=== PATIENT | female | born 1990 | race African-American/Black ===

== ENCOUNTER 2016-08-14 22:24 | Emergency (ER) | payer MEDICAID ==
[2016-08-14] MEDS ORDERED: POLYMYXIN B SULFATE/TMP OPH SOLN (10 ML/ER DISP) OU PRN (23:06)
--- NOTE | 2016-08-14 23:12 | ER Document Report ---
ED General - General Chief Complaint: Eye Problem Stated Complaint: POSSIBLE PINK EYE Time Seen by Provider: 08/14/16 22:54 Notes: Patient is a 25-year-old female who presents with complaint of pinkeye. She said she has had cold-like symptoms for the last 2 days. Slight sore throat. A lot of runny nose congestion. Some cough. No fevers. Today she started noticing some redness in her right eye and now has redness in both eyes. She says that she develops matting when her eyes are closed. She is otherwise healthy. She has no other complaints at this time. TRAVEL OUTSIDE OF THE [place] IN LAST 30 DAYS: No - Related Data Allergies/Adverse Reactions: Penicillins Allergy (Mild, Verified 09/01/15 19:53) rash Past Medical History - Social History Smoking Status: Current Every Day Smoker Chew tobacco use (# tins/day): No Frequency of alcohol use: None Drug Abuse: None Family History: Arthritis, CAD, CVA, DM, Hyperlipidemia, Hypertension, Thyroid Disfunction Pulmonary Medical History: Reports: Hx Asthma, Hx Bronchitis Renal/ Medical History: Denies: Hx Peritoneal Dialysis GI Medical History: Reports: Hx Gastroesophageal Reflux Disease Past Surgical History: Reports: Hx Oral Surgery - Immunizations Immunizations up to date: No Hx Diphtheria, Pertussis, Tetanus Vaccination: Yes Review of Systems - Review of Systems Notes: My Normal Review Basic REVIEW OF SYSTEMS: CONSTITUTIONAL : Denies fever, chills, or sweats. Denies recent illness. EENT: Nasal congestion. Eye redness. RESPIRATORY: Cough. GASTROINTESTINAL: Denies abdominal pain. Denies nausea, vomiting, or diarrhea. Denies constipation. Last BM: MUSCULOSKELETAL: Denies neck or back pain or joint pain or swelling. SKIN: Denies rash or skin lesions. NEUROLOGICAL: Denies altered mental status or loss of consciousness. Denies headache. Denies weakness or paralysis or loss of use of either side. Denies problems with gait or speech. Denies sensory or motor loss. ALL OTHER SYSTEMS REVIEWED AND NEGATIVE. Physical Exam - Vital signs Vitals: Temp Pulse Resp BP Pulse Ox 98.2 F 79 16 123/82 98 08/14/16 22:35 08/14/16 22:35 08/14/16 22:35 08/14/16 22:35 08/14/16 22:35 - Notes Notes: General Appearance: Well nourished, alert, cooperative, no acute distress, no obvious discomfort. Well appearing. Vitals: reviewed, See vital signs table. Head: no swelling or tenderness to the head Eyes: PERRL, EOMI, patient has erythema of conjunctivitis of both eyes. She has a little bit of yellowish discharge base of the right eye. Patient is wearing glasses. She does not have contacts in. Findings are consistent with conjunctivitis. Mouth: No decreasd moisture Throat: No tonsillar inflammation, No airway obstruction, No lymphadenopathy Neck: Supple, no neck tenderness Lungs: No wheezing, No rales, No rhonci, No accessory muscle use, good air exchange bilaterally. Heart: Normal rate, Regular rythm, No murmur, no rub Extremities: strength 5/5 in all extremities, good pulses in all extremities, no swelling or tenderness in the extremities, no edema. Skin: warm, dry, appropriate color, no rash Neuro: speech clear, oriented x 3, normal affect, responds appropriately to questions. Course - Vital Signs Vital signs: Temp Pulse Resp BP Pulse Ox 98.2 F 79 16 123/82 98 08/14/16 22:35 08/14/16 22:35 08/14/16 22:35 08/14/16 22:35 08/14/16 22:35 - Transfer of Care Notes: 08/15/16 00:21 Patient has conjunctivitis most likely related to a upper respiratory infection. Patient will be placed on an biotic eyedrops. She was given those here. She is encouraged to return to ER if she has fevers, worsening redness to the eye, increased swelling around the eye, or if she has further concerns. Patient agrees with plan and will be discharged home. Dictation of this chart was performed using voice recognition software; therefore, there may be some unintended grammatical errors. Discharge - Discharge Clinical Impression: Conjunctivitis Qualifiers: Conjunctivitis type: acute Acute conjunctivitis type: unspecified Laterality: bilateral Qualified Code(s): H10.33 - Unspecified acute conjunctivitis, bilateral URI (upper respiratory infection) Qualifiers: URI type: unspecified URI Qualified Code(s): J06.9 - Acute upper respiratory infection, unspecified Condition: Good Disposition: HOME, SELF-CARE Additional Instructions: Please apply the Polytrim eye drops as 1 drop in each eye every 3 hours for 7 days. Please return to the ER immeidately if your eye redness continue to get worse despite using the eye drops. Please return to the ER if you have fevers, diffiuclty breathing, or feel unwell.
[2016-08-15 02:40] VITALS: BP 116/58
== END 2016-08-14 23:55 | disposition home or self-care (01) ==
LOC: ER 22:24
DX: H10.33 Unspecified acute conjunctivitis, bilateral (principal); J06.9 Acute upper respiratory infection, unspecified; F17.200 Nicotine dependence, unspecified, uncomplicated
CPT/HCPCS: 99282; J3490

== ENCOUNTER 2017-06-22 07:32 | Emergency (ER) | payer SELFPAY ==
[2017-06-22 07:44] VITALS: BP 128/79
--- NOTE | 2017-06-22 08:06 | ER Document Report ---
ED General - General Chief Complaint: Rib Pain Stated Complaint: CHEST PAIN Mode of Arrival: Ambulatory Information source: Patient TRAVEL OUTSIDE OF THE [place] IN LAST 30 DAYS: No - HPI Notes: 26-year-old female presents today with complaints of left chest wall pain that started last night, reports worse when she takes a deep breath in. Denies any recent trauma, recent URI or coughing. 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 Pain is 6 out of 10, throbbing achy. His not tried any [id number] medication. States she is able to reproduce the chest pain brought her into the emergency room by palpating her bed. Denies , is on Depo-Provera and . Denies fevers, chills, chest pain,palpitations, shortness of breath, dyspnea, nausea, vomiting, diarrhea, abdominal pain, hematuria,blurred vision, double vision, loss of vision, speech changes, LH, dizziness, syncope, headaches , wheezing, ST, URI, neck pain, weakness, bowel or bladder dysfunction, saddle anesthesia, numbness or tingling in bilateral upper or lower extremities equally , muscle paralysis, weakness in bilateral upper or lower extremities equally or rash. Denies IV drug use. - Related Data Allergies/Adverse Reactions: Penicillins Allergy (Mild, Verified 06/22/17 07:33) rash Past Medical History - General Information source: Patient - Social History Smoking Status: Unknown if Ever Smoked Family History: Arthritis, CAD, CVA, DM, Hyperlipidemia, Hypertension, Thyroid Disfunction Pulmonary Medical History: Reports: Hx Asthma, Hx Bronchitis Renal/ Medical History: Denies: Hx Peritoneal Dialysis GI Medical History: Reports: Hx Gastroesophageal Reflux Disease Past Surgical History: Reports: Hx Oral Surgery - Immunizations Immunizations up to date: No Hx Diphtheria, Pertussis, Tetanus Vaccination: Yes Review of Systems - Review of Systems Notes: REVIEW OF SYSTEMS: CONSTITUTIONAL : Denies fever, chills, or sweats. Denies recent illness. EENT: Denies eye, ear, throat, or mouth pain or symptoms. Denies nasal or sinus congestion or discharge. Denies throat, tongue, or mouth swelling or difficulty swallowing. CARDIOVASCULAR: reports chest wall pain. Denies chest pain. Denies palpitations or racing or irregular heart beat. Denies ankle edema. RESPIRATORY: Denies cough, cold, or chest congestion. Denies shortness of breath, difficulty breathing, or wheezing. GASTROINTESTINAL: Denies abdominal pain or distention. Denies nausea, vomiting , or diarrhea. Denies blood in vomitus, stools, or per rectum. Denies black, tarry stools. Denies constipation. GENITOURINARY: Denies difficulty urinating, painful urination, burning, frequency, blood in urine, or discharge. FEMALE GENITOURINARY: Denies vaginal bleeding, heavy or abnormal periods, irregular periods. Denies vaginal discharge or odor. MUSCULOSKELETAL: Denies back or neck pain or stiffness. Denies joint pain or swelling. SKIN: Denies rash, lesions or sores. HEMATOLOGIC : Denies easy bruising or bleeding. LYMPHATIC: Denies swollen, enlarged glands. NEUROLOGICAL: Denies confusion or altered mental status. Denies passing out or loss of consciousness. Denies dizziness or lightheadedness. Denies headache. Denies weakness or paralysis or loss of use of either side. Denies problems with gait or speech. Denies sensory loss, numbness, or tingling. Denies seizures. PSYCHIATRIC: Denies anxiety or stress. Denies depression, suicidal ideation, or homicidal ideation. ALL OTHER SYSTEMS REVIEWED AND NEGATIVE. PHYSICAL EXAMINATION: GENERAL: Well-appearing, well-nourished and in no acute distress. HEAD: Atraumatic, normocephalic. EYES: Pupils equal round and reactive to light, extraocular movements intact, conjunctiva are normal. ENT: Nares patent, oropharynx clear without exudates. Moist mucous membranes. NECK: Normal range of motion, supple without lymphadenopathy LUNGS: Breath sounds clear to auscultation bilaterally and equal. No wheezes rales or rhonchi. HEART: Regular rate and rhythm without murmurs. Able to reproduce chest pain on palpation of left rib between 6 and seventh intercostal space on palpation. No ecchymosis, abrasion noted. No step-off noted. ABDOMEN: Soft, nontender, nondistended abdomen. No guarding, no rebound. No masses appreciated. Female : deferred Musculoskeletal: Normal range of motion, no pitting or edema. No cyanosis. NEUROLOGICAL: Cranial nerves grossly intact. Normal speech, normal gait. Normal sensory, motor exams PSYCH: Normal mood, normal affect. SKIN: Warm, Dry, normal turgor, no rashes or lesions noted. Dictation was performed using [employer] voice recognition software Physical Exam - Vital signs Vitals: Temp Pulse Resp BP Pulse Ox 98.3 F 89 18 128/79 H 99 06/22/17 07:38 06/22/17 07:38 06/22/17 07:38 06/22/17 07:38 06/22/17 07:38 Course - Re-evaluation Re-evalutation: 06/22/17 09:35 Healthy 18-year-old female is afebrile and vitals are stable presents today for left-sided chest wall pain. X-ray negative for any acute fracture. Chest x- ray normal. EKG normal, no STEMI. Patient did find relief with Toradol and reevaluation. Discussed with patient to splint while coughing or taking deep breaths. Verbalized to patient that she will have this pain likely for a week or 2. Advised to return to the emergency room if she has experiencing any worsening chest pain, chest pain, shortness of breath, fevers or chills, etc. Patient verbalized understanding of this plan of care and agree with plan of care. Patient was discharged home with strict instructions to return if symptoms get worse. After performing a Medical Screening Examination, I estimate there is LOW risk for ACUTE CORONARY SYNDROME, PULMONARY EMBOLI, RESPIRATORY FAILURE, SEPSIS OR MENINGITIS, thus I consider the discharge disposition reasonable. I have reevaluated this patient multiple times and no significant life threatening changes are noted. The patient and I have discussed the diagnosis and risks, and we agree with discharging home with close follow-up. We also discussed returning to the Emergency Department immediately if new or worsening symptoms occur. We have discussed the symptoms which are most concerning (e.g., changing or worsening pain, trouble swallowing or breathing, neck stiffness, fever) that necessitate immediate return. 06/22/17 12:19 - Vital Signs Vital signs: Temp Pulse Resp BP Pulse Ox 98.3 F 89 18 128/79 H 99 06/22/17 07:38 06/22/17 07:38 06/22/17 07:38 06/22/17 07:38 06/22/17 07:38 - EKG Interpretation by Me EKG shows normal: Sinus rhythm Rate: Normal Rhythm: NSR - HR [address] segment elevation. No STEMI. Discharge - Discharge Clinical Impression: Costochondritis, acute Condition: Good Disposition: HOME, SELF-CARE Instructions: Costochondritis ([facility]) Additional Instructions: Costochondritis Your chest pain is coming from the rib cartilages in the chest wall. This is often caused by subtle straining of the ribs near the breastbone. The strain can occur from a mild injury, coughing or sneezing with a "cold," vigorous vomiting, or even from rib compression while sleeping. Often the pain doesn't begin until a couple of days after the strain. Persons with arthritis are especially prone to this type of pain, due to inflammation of the cartilage joints near the breast bone. But often, there is no clear reason why it happens. Rest from strenuous physical activity. This kind of chest pain is usually made worse by movement of the chest. Depending on the symptoms, we may prescribe medicine for pain and inflammation. Apply gentle warmth to the painful area for 15 minutes every hour or two. You should call contact the doctor immediately if things change. Further evaluation is needed if you develop a fever or cough, if the nature of the pain changes, or if you become short of breath. If you experience any worsening pain, any heart pain, shortness of breath, palpitations, fever chills, any worsening symptoms return to the emergency room right away. Take meloxicam with food, do not take any other NSAIDs while taking this medication. Splint chest while coughing or sneezing. Your rib X- ray was negative for any acute fractures. Follow-up with your primary care provider within 24 hours. Return immediately for any new or worsening symptoms. Follow up with primary care provider, call tomorrow to make followup appointment. Prescriptions: Meloxicam 7.5 mg PO DAILY #5 tablet Forms: Return to Work Referrals: PAN GRAY MD [ACTIVE STAFF] - Follow up tomorrow
[2017-06-22] MEDS ORDERED: KETOROLAC TROMETHAMINE 60 MG/2 ML SDV IM ONE (08:59)
--- NOTE | 2017-06-22 09:24 | RADIOLOGY REPORT (SQ) ---
EXAM DESCRIPTION: RIBS LEFT W/PA CHEST COMPLETED DATE/TIME: 06/22/2017 8:50 am REASON FOR STUDY: left rib pain COMPARISON: Two-view chest 06/23/2015, 11/09/2014 TECHNIQUE: Frontal view of the chest and additional views of the left ribs acquired. NUMBER OF VIEWS: PA chest Left rib detail two views LIMITATIONS: None. FINDINGS: FRONTAL CXR: No pneumothorax. No pleural effusion. No atelectasis or infiltrates. Cardi ac silhouette size, duane, bony structures unremarkable. RIBS: No displaced rib fractures. No lytic or blastic bony lesions. OTHER: No other significant finding. IMPRESSION: NO PNEUMOTHORAX. NO DISPLACED RIB FRACTURES. COMMENT: SITE OF TRAUMA/COMPLAINT MARKED/STAMP COMPLETED: Yes TECHNICAL DOCUMENTATION: JOB ID: [id number] [employer]- All Rights Reserved Reading location - IP/workstation name: [email or web address]
--- NOTE | 2017-06-22 09:38 | EKG REPORT ---
SEVERITY:- NORMAL ECG - SINUS RHYTHM : Confirmed by: Ree Holly 22-Jun-2017 09:38:30
== END 2017-06-22 09:53 | disposition home or self-care (01) ==
LOC: ER 07:32
DX: M94.0 Chondrocostal junction syndrome [Tietze] (principal); R07.81 Pleurodynia; Z88.0 Allergy status to penicillin
CPT/HCPCS: 99283; 96372; 71101; 93005; 93010; J1885

== ENCOUNTER 2017-10-17 20:52 | Emergency (ER) | payer SELFPAY ==
[2017-10-17 21:03] VITALS: BP 111/63
[2017-10-17] MEDS ORDERED: DEXAMETHASONE SOD PHOS INJ 10 MG/1 ML VIAL IM ONE (21:29)
[2017-10-17] MEDS ORDERED: KETOROLAC TROMETHAMINE INJ/PF 30 MG/1 ML SDV IM ONE (21:30)
[2017-10-17] MEDS ORDERED: DIAZEPAM 5 MG TABLET PO ONE (21:30)
--- NOTE | 2017-10-17 21:39 | ER Document Report ---
ED General - General Chief Complaint: Low Back Pain Stated Complaint: BACK PAIN Time Seen by Provider: 10/17/17 21:22 TRAVEL OUTSIDE OF THE [place] IN LAST 30 DAYS: No - HPI Notes: 26-year-old female presents with low back pain. 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 On Tuesday she began to have back pain but improved on Tuesday. However at work she bent over to grab something had sudden increasingly severe right lower back pain that radiated down toward her right hip. Sharp and severe and burning. No bowel or bladder dysfunction. No other modifying factors, no other associated symptoms, no other provocative or palliative factors. - Related Data Allergies/Adverse Reactions: Penicillins Allergy (Mild, Verified 06/22/17 07:33) rash Past Medical History - Social History Smoking Status: Smoker,Current Status Unk Family History: Arthritis, CAD, CVA, DM, Hyperlipidemia, Hypertension, Thyroid Disfunction - Medical History Notes: Includes chronic back pain Pulmonary Medical History: Reports: Hx Asthma, Hx Bronchitis Renal/ Medical History: Denies: Hx Peritoneal Dialysis GI Medical History: Reports: Hx Gastroesophageal Reflux Disease Past Surgical History: Reports: Hx Oral Surgery - Immunizations Immunizations up to date: No Hx Diphtheria, Pertussis, Tetanus Vaccination: Yes Review of Systems - Review of Systems Notes: Review of systems as in history of present illness, otherwise no significant headache, chest pain, abdominal pain. Physical Exam - Vital signs Vitals: Temp Pulse Resp BP Pulse Ox 97.9 F 70 14 111/63 100 10/17/17 20:59 10/17/17 20:59 10/17/17 20:59 10/17/17 20:59 10/17/17 20:59 - Notes Notes: General: Well devloped, no acute distress. HEENT: Normocephalic, atraumatic. Pupils equal round reactive to light. Mucosa moist. No JVD. Chest: No trauma, normal excursion. Respiratory: Good air exchange, normal excursion. Cardiac: Regular rhythm Abdomen: Soft, benign. Nondistended. Back: No asymmetry or gross abnormality. Right paralumbar tenderness and spasm. Motor: Grossly normal power and tone. Right hip flexion limited secondary secondary to pain. Neurologic: Alert, nonfocal. 2+ DTRs, normal sensation. Vascular: Well perfused Skin: No petechiae or purpura Course - Re-evaluation Re-evalutation: 10/17/17 21:37 Appearing female lumbar strain versus lumbar radiculopathy. No high-risk features. There is no history of malignancy, no history of bowel or bladder dysfunction. No fever or constitutional symptoms. No history of IV drug abuse. Plan to proceed with treatment with Decadron, Toradol, Valium, outpatient naproxen and Flexeril, outpatient follow-up. - Vital Signs Vital signs: Temp Pulse Resp BP Pulse Ox 97.9 F 70 14 111/63 100 10/17/17 20:59 10/17/17 20:59 10/17/17 20:59 10/17/17 20:59 10/17/17 20:59 Discharge - Discharge Clinical Impression: Back pain Qualifiers: Back pain location: low back pain Chronicity: acute Back pain laterality: right Sciatica presence: with sciatica Sciatica laterality: sciatica of right side Qualified Code(s): M54.41 - Lumbago with sciatica, right side Condition: Good Disposition: HOME, SELF-CARE Instructions: Low Back Pain ([facility]) Prescriptions: Cyclobenzaprine HCl [Flexeril 10 mg Tablet] 10 mg PO TIDP PRN #15 tab PRN Reason: Naproxen 500 mg PO Q12 PRN #12 tablet PRN Reason:
== END 2017-10-17 21:55 | disposition home or self-care (01) ==
LOC: ER 20:52
DX: M54.41 Lumbago with sciatica, right side (principal); J45.909 Unspecified asthma, uncomplicated; Z88.0 Allergy status to penicillin
CPT/HCPCS: 99283; 96372; J1885; J1100

== ENCOUNTER 2018-10-04 00:39 | Emergency (ER) | payer MEDICAID ==
[2018-10-04 01:51] LABS: ABSOLUTE BASOPHILS # (AUTO) 0.1 10^3/uL (0.0-0.2); ABSOLUTE EOSINOPHILS # (AUTO) 0.1 10^3/uL (0.0-0.6); ABSOLUTE LYMPHOCYTES (AUTO) 3.1 10^3/uL (0.5-4.7); ABSOLUTE MONOCYTES (AUTO) 0.8 10^3/uL (0.1-1.4); ABSOLUTE NEUT (AUTO) 5.9 10^3/uL (1.7-8.2); BASOPHILS % (AUTO) 1.2 % (0-2); EOSINOPHILS % (AUTO) 0.6 % (0-6); HEMATOCRIT 37.4 % (36.0-47.0); HEMOGLOBIN 12.5 g/dL (12.0-15.5); LYMPHOCYTES % (AUTO) 31.2 % (13-45); MEAN CORPUSCULAR HGB CONC 33.5 g/dL (32.0-36.0); MEAN CORPUSCULAR VOLUME 84 fl (80-97); MONOCYTES % (AUTO) 7.8 % (3-13); PLATELET COUNT 461 10^3/uL (150-450); RED BLOOD COUNT 4.48 10^6/uL (3.72-5.28); RED CELL DISTRIBUTION WIDTH 12.7 % (11.5-14.0); SEGMENTED NEUTROPHILS % (AUTO) 59.2 % (42-78); TOTAL CELLS COUNTED % (AUTO) 100 %
[2018-10-04 01:52] LABS: APPEARANCE,URINE SLIGHTLY-CLOUDY; BILIRUBIN,URINE NEGATIVE (NEGATIVE); COLOR,URINE YELLOW; GLUCOSE, URINE NEGATIVE (NEGATIVE); KETONES,URINE TRACE mg/dL (NEGATIVE); LEUKOCYTE ESTERASE,URINE MODERATE (NEGATIVE); NITRITE,URINE NEGATIVE (NEGATIVE); PROTEIN,URINE NEGATIVE (NEGATIVE); URINE SPECIFIC GRAVITY 1.013; UROBILINOGEN,URINE NEGATIVE mg/dL (<2.0)
[2018-10-04 01:57] LABS: ADD MANUAL MICROSCOPIC YES
[2018-10-04 01:58] LABS: RBC,URINE RARE /HPF
[2018-10-04 02:04] LABS: BLOOD UREA NITROGEN 8 mg/dL (7-20); CALCIUM 9.6 mg/dL (8.4-10.2); GLUCOSE 88 mg/dL (75-110)
[2018-10-04 02:05] LABS: ALANINE AMINOTRANSFERASE 36 U/L (9-52); ALBUMIN 4.1 g/dL (3.5-5.0); ALKALINE PHOSPHATASE 66 U/L (38-126); ANION GAP 11 (5-19); ASPARTATE AMINO TRANSFERASE 34 U/L (14-36); BILIRUBIN,DIRECT 0.2 mg/dL (0.0-0.4); BILIRUBIN,TOTAL 0.2 mg/dL (0.2-1.3); CARBON DIOXIDE 20 mmol/L (22-30); CHLORIDE 105 mmol/L (98-107); POTASSIUM 4.3 mmol/L (3.6-5.0); SODIUM 136.4 mmol/L (137-145); TOTAL PROTEIN 7.6 g/dL (6.3-8.2)
--- NOTE | 2018-10-04 02:37 | ER Document Report ---
ED General - General Chief Complaint: Fever Stated Complaint: FEVER Time Seen by Provider: 10/04/18 02:05 TRAVEL OUTSIDE OF THE [place] IN LAST 30 DAYS: No - HPI Notes: Patient is a 27-year-old female, at approximately 6 weeks gestation, who presents to the emergency department for evaluation. She has had a cough, cold, congestion symptoms for the last several weeks. She is had intermittent nausea and vomiting. She has only had one episode of emesis in the last 24 hours. She states that her cough seems to be getting better, but she continues to complain of malaise, fatigue. She denies any hematuria, dysuria. She denies any abdominal pain or vaginal bleeding. She has not yet seen OB. She states she has had some low-grade fevers, but denies any temperatures higher than 100.4. She denies any pain. - Related Data Allergies/Adverse Reactions: Penicillins Allergy (Mild, Verified 06/22/17 07:33) rash Past Medical History - General Information source: Patient - Social History Smoking Status: Current Every Day Smoker Frequency of alcohol use: None Drug Abuse: None Family History: Arthritis, CAD, CVA, DM, Hyperlipidemia, Hypertension, Thyroid Disfunction Patient has suicidal ideation: No Patient has homicidal ideation: No Pulmonary Medical History: Reports: Hx Asthma, Hx Bronchitis Renal/ Medical History: Denies: Hx Peritoneal Dialysis GI Medical History: Reports: Hx Gastroesophageal Reflux Disease Past Surgical History: Reports: Hx Oral Surgery - Immunizations Immunizations up to date: No Hx Diphtheria, Pertussis, Tetanus Vaccination: Yes Review of Systems - Review of Systems Constitutional: See HPI EENT: See HPI Cardiovascular: No symptoms reported Respiratory: See HPI Gastrointestinal: See HPI Genitourinary: No symptoms reported Female Genitourinary: See HPI Musculoskeletal: No symptoms reported Skin: No symptoms reported Neurological/Psychological: No symptoms reported Physical Exam - Vital signs Vitals: Temp Pulse Resp BP Pulse Ox 97.8 F 68 16 124/67 97 10/04/18 00:44 10/04/18 00:44 10/04/18 00:44 10/04/18 00:44 10/04/18 00:44 - Notes Notes: Vital signs reviewed, please refer to chart. Head is normocephalic, atraumatic. Pupils equal round, reactive to light. Oral mucosa is moist. Pharynx is without erythema or exudate. Neck is supple without meningismus. Heart is regular rate and rhythm. Lungs are clear to auscultation bilaterally. Abdomen is soft, nontender, normoactive bowel sounds throughout. Extremities without cyanosis, clubbing. Posterior calves are nontender. Peripheral pulses are equal. Skin is warm and dry. Patient is awake, alert, neurological exam is nonfocal. Course - Re-evaluation Re-evalutation: 10/04/18 02:36 Patient presents emergency department for evaluation. She complains of cough a nd congestion, which is actually improved, as well as malaise. She is not early . She has no abdominal pain or vaginal bleeding. Laboratory investigations are pending. Will await electrolytes to see if patient needs IV hydration. At this point she is 97 to 99% on room air. Her lung exam is unremarkable. Her cough and URI symptoms are improving. I do not have any concerns for pneumonia, which was the patient's primary concern. We discussed the fact that there are not very many medications that are considered safe in the first trimester , and she voiced understanding to this. Assuming her electrolytes are not abnormal, she is to continue Tylenol as needed, follow-up with her OB this week. She is to return to the ED with worsening or new concerning symptoms of any sort. 10/04/18 03:52 Patient's metabolic panel did indeed reveal signs of dehydration. I spoke with the patient regarding this. We did offer her IV fluids. She states she would like to try oral hydration. She was told to take small, frequent sips of fluids. She is to follow-up with OB, return to the ED with worsening or new concerning symptoms. - Vital Signs Vital signs: Temp Pulse Resp BP Pulse Ox 97.8 F 68 16 124/67 97 10/04/18 00:44 10/04/18 00:44 10/04/18 00:44 10/04/18 00:44 10/04/18 00:44 - Laboratory Result Diagrams: 10/04/18 01:25 10/04/18 01:25 Laboratory results interpreted by me: 10/04/18 10/04/18 10/04/18 01:25 01:25 01:25 Plt Count 461 H Sodium 136.4 L Carbon Dioxide 20 L Beta HCG, Quant 56072.00 H Urine Ketones TRACE H Ur Leukocyte Esterase MODERATE H Urine HCG, Qual 10/04/18 01:25 Plt Count Sodium Carbon Dioxide Beta HCG, Quant Urine Ketones Ur Leukocyte Esterase Urine HCG, Qual POSITIVE H Discharge - Discharge Clinical Impression: Dehydration, Nausea and vomiting during Qualifiers: Weeks of gestation: less than 8 weeks Qualified Code(s): Z3A.01 - Less than 8 weeks gestation of Upper respiratory infection Qualifiers: URI type: unspecified viral URI Qualified Code(s): J06.9 - Acute upper respira tory infection, unspecified Condition: Stable Disposition: HOME, SELF-CARE Instructions: Acetaminophen, Upper Respiratory Illness ([facility]), Nausea or Vomiting, Nonspecific ([facility]) Additional Instructions: Small, frequent sips of fluids. Follow-up with your OB this week. Return to the emergency department if you develop worsening or new concerning symptoms of any sort.
[2018-10-04 04:06] VITALS: BP 122/74
== END 2018-10-04 04:06 | disposition home or self-care (01) ==
LOC: ER 00:39
DX: O98.811 Other maternal infectious and parasitic diseases complicating pregnancy, first trimester (principal); J06.9 Acute upper respiratory infection, unspecified; R50.9 Fever, unspecified; E86.0 Dehydration; O21.9 Vomiting of pregnancy, unspecified; Z3A.01 Less than 8 weeks gestation of pregnancy; Z88.0 Allergy status to penicillin
CPT/HCPCS: 36415; 80053; 81001; 81025; 84702; 85025; 87086; 99283

== ENCOUNTER → 2018-10-04 | Outpatient (CLI) | payer SELFPAY ==
--- NOTE | 2018-10-04 16:15 | RADIOLOGY REPORT (SQ) ---
EXAM DESCRIPTION: U/S TP2HWFG TRNABD 1GES W/ODOP COMPLETED DATE/TIME: 10/04/2018 2:28 pm REASON FOR STUDY: ENCTR FOR SUPERVISION OF OTHER NORMAL , 1ST TRIMESTER (Z34.81) Z34.81 EN COUNTER FOR SUPRVSN OF NORMAL , FIRST TRIM COMPARISON: None. TECHNIQUE: Transabdominal static and realtime grayscale images acquired of the pelvis. Additional se lected spectral and color Doppler images recorded. All images stored on PACs. CG: Not available. CLINICAL DATES: 7 weeks 2 days LIMITATIONS: None. FINDINGS: FETUS: Single Living intrauterine . ULTRASOUND EGA: 6 weeks 6 days ULTRASOUND LAUREEN: 05/24/2019 EFW: Not applicable less than 20 weeks. CRL: 9 mm FHR: 141 beats per minute. SURVEY: No visualized anomalies. AMNIOTIC FLUID: Adequate amount. PLACENTA: Not yet developed due to early gestation. SUBCHORIONIC BLEED: No. SIZE OF BLEED: Not applicable. UTERUS: No masses. No anomalies. CERVICAL LENGTH: 3.2 cm. Closed. RIGHT ADNEXA: Normal ovary with normal vascular flow. No adnexal free fluid. No adnexal masses. LEFT ADNEXA: Normal ovary with normal vascular flow. No adnexal free fluid. Simple cyst(s) measuring 4.6 cm. FREE FLUID: None. OTHER: No other significant finding. IMPRESSION: LIVING INTRAUTERINE . EGA 6 weeks 6 days Trimester of : First - 0 to 13 weeks. TECHNICAL DOCUMENTATION: JOB ID: [id number] [employer]- All Rights Reserved rev Reading location - IP/workstation name: [email or web address]
== END ==
LOC: RAD 13:30
PROVIDERS: ATTEND Midwife
DX: Z34.81 Encounter for supervision of other normal pregnancy, first trimester (principal)
CPT/HCPCS: 76801

== ENCOUNTER 2018-12-14 08:33 | Emergency (ER) | payer MEDICAID ==
--- NOTE | 2018-12-14 09:22 | ER Document Report ---
ED General - General Chief Complaint: Abdominal Pain Stated Complaint: ABDOMINAL PAIN Time Seen by Provider: 12/14/18 09:22 Primary Care Provider: DIANA DEAN MD [ACTIVE STAFF] - Follow up as needed MARKELL DORAN MD [ACTIVE STAFF] - Follow up as needed TRAVEL OUTSIDE OF THE [place] IN LAST 30 DAYS: No - HPI Notes: 28-year-old female who is 17 weeks presents to the ED for complaints of having upper and lower abdominal cramping that started approximately 3 days ago, states is a dull pain. 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 Denies any vaginal bleeding or vaginal discharge. Has not tried any lrja-twa-vyzssvg medications, does have a history of GERD, does take ranitidine daily. Patient's last bowel movement was last night. Denies any melena, coffee-ground emesis. Denies fevers, chills, chest pain,palpitations, shortness of breath, dyspnea, diarrhea, hematuria,blurred vision, double vision, loss of vision, speech changes, LH, dizziness, syncope, headaches, wheezing, ST, URI, neck pain, weakness, bowel or bladder dysfunction, saddle anesthesia, numbness or tingling in bilateral upper or lower extremities equally, muscle paralysis, weakness in bilateral upper or lower extremities equally or rash. - Related Data Allergies/Adverse Reactions: Penicillins Allergy (Mild, Verified 06/22/17 07:33) rash Past Medical History - General Information source: Patient - Social History Smoking Status: Former Smoker Chew tobacco use (# tins/day): No Frequency of alcohol use: None Drug Abuse: None Family History: Arthritis, CAD, CVA, DM, Hyperlipidemia, Hypertension, Thyroid Disfunction Patient has suicidal ideation: No Patient has homicidal ideation: No Pulmonary Medical History: Reports: Hx Asthma, Hx Bronchitis Renal/ Medical History: Denies: Hx Peritoneal Dialysis GI Medical History: Reports: Hx Gastroesophageal Reflux Disease Past Surgical History: Reports: Hx Oral Surgery - Immunizations Immunizations up to date: No Hx Diphtheria, Pertussis, Tetanus Vaccination: Yes Review of Systems - Review of Systems Constitutional: No symptoms reported EENT: No symptoms reported Cardiovascular: No symptoms reported Respiratory: No symptoms reported Gastrointestinal: See HPI Genitourinary: No symptoms reported Female Genitourinary: No symptoms reported Musculoskeletal: No symptoms reported Skin: No symptoms reported Hematologic/Lymphatic: No symptoms reported Neurological/Psychological: No symptoms reported Physical Exam - Vital signs Vitals: Temp Pulse Resp BP Pulse Ox 98.4 F 76 16 124/70 97 12/14/18 08:36 12/14/18 08:36 12/14/18 08:36 12/14/18 08:36 12/14/18 08:36 - Notes Notes: PHYSICAL EXAMINATION: GENERAL: Well-appearing, well-nourished and in no acute distress. HEAD: Atraumatic, normocephalic. EYES: Pupils equal round and reactive to light, extraocular movements intact, conjunctiva are normal. ENT: Nares patent, oropharynx clear without exudates. Moist mucous membranes. NECK: Normal range of motion, supple without lymphadenopathy LUNGS: Breath sounds clear to auscultation bilaterally and equal. No wheezes rales or rhonchi. HEART: Regular rate and rhythm without murmurs ABDOMEN: Bowel sounds heard in all quadrants. soft, nondistended abdomen. Generalized abdominal pain no guarding, no rebound. No masses appreciated. Female : deferred Musculoskeletal: Normal range of motion, no pitting or edema. No cyanosis. NEUROLOGICAL: Cranial nerves grossly intact. Normal speech, normal gait. Normal sensory, motor exams PSYCH: Normal mood, normal affect. SKIN: Warm, Dry, normal turgor, no rashes or lesions noted. - General General appearance: Appears well, Alert Course - Re-evaluation Re-evalutation: 12/14/18 10:19 Afebrile vital stable no distress. CBC negative for leukocytosis or anemia, CMP negative for hepatic or renal dysfunction, no electrolyte disturbances. Lipase was negative. Ultrasound of abdomen was unremarkable, SYSTEM ENGINEER ultrasound shows intrauterine approximately 18 weeks and 2 days, heart rate 140. Patient states she felt much better after a liter of fluids, her nausea and vomiting has abated. Serum hCG seems to be exceptionally low, did a repeat of serum hCG which seems all for being 18 weeks along, unsure if it serum hCG chemistry was correct being that she was 18 weeks . Discussed follow a low-fat diet, stay hydrated. She does not have any vaginal discharge, no vaginal pain. advised to take vitamin B6 for nausea and vomiting. 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 After performing a Medical Screening Examination, I estimate there is LOW risk for ACUTE APPENDICITIS, BOWEL OBSTRUCTION, ACUTE CHOLECYSTITIS, PERFORATED DIVERTICULITIS, INCARCERATED HERNIA, PANCREATITIS, PELVIC INFLAMMATORY DISEASE, PERFORATED ULCER, ECTOPIC , or TUBO-OVARIAN ABSCESS, thus I consider th e discharge disposition reasonable. Also, there is no evidence or peritonitis, sepsis, or toxicity. I have reevaluated this patient multiple times and no significant life threatening changes are noted. The patient and I have discussed the diagnosis and risks, and we agree with discharging home with close follow-up with the understanding that symptoms and presentations can change. We also discussed returning to the Emergency Department immediately if new or worsening symptoms occur. We have discussed the symptoms which are most concerning (e.g., bloody stool, fever, changing or worsening pain, vomiting) that necessitate immediate return. - Vital Signs Vital signs: Temp Pulse Resp BP Pulse Ox 97.6 F 76 18 110/65 100 12/14/18 13:13 12/14/18 13:13 12/14/18 13:13 12/14/18 13:13 12/14/18 13:13 - Laboratory Result Diagrams: 12/14/18 09:48 12/14/18 09:48 Laboratory results interpreted by me: 12/14/18 12/14/18 12/14/18 09:48 09:48 09:48 Hgb 11.3 L Hct 32.9 L Sodium 136.2 L Carbon Dioxide 21 L BUN 5 L Creatinine 0.46 L Glucose 119 H Beta HCG, Quant 3049.00 H Urine Protein 30 H Urine Urobilinogen 2.0 H Ur Leukocyte Esterase TRACE H 12/14/18 12:38 Hgb Hct Sodium Carbon Dioxide BUN Creatinine Glucose Beta HCG, Quant 2922.60 H Urine Protein Urine Urobilinogen Ur Leukocyte Esterase Discharge - Discharge Clinical Impression: Abdominal pain, Condition: Stable Disposition: HOME, SELF-CARE Instructions: Abdominal Pain ([facility]), ([facility]) Additional Instructions: You are . care is best started as early in as possible. If you're unsure about continuing this , you should discuss this with your physician or with carton and can supply supervisor at [facility]. You should take only medications approved by your physician. Acetaminophen can safely be taken for minor pains. As a rule, medication for chronic conditio ns such as asthma or seizures can safely be continued. You should discuss with the physician every medicine you take. Any regular exercise program can be continued. Talk to your physician, however, before engaging in competitive or demanding sports. Alcohol, smoking, and "street drugs" are dangerous to your baby. Cocaine is especially dangerous. Don't use any illicit drugs! Your OB ultrasound shows that you are 18 weeks and 2 days, heartbeat 141. Abdominal ultrasound was normal. All of your blood work was normal except it did show the beginnings of a UTI, will start you on Macrobid twice a day for 5 days and will culture the urine. Please follow-up with your doctor and your GLUE REEL OPERATOR. Prescriptions: Nitrofurantoin Macrocrystal [Macrodantin] 100 mg PO BID #14 capsule Forms: Return to Work Referrals: DIANA DEAN MD [ACTIVE STAFF] - Follow up as needed MARKELL DORAN MD [ACTIVE STAFF] - Follow up as needed
[2018-12-14] MEDS ORDERED: NORMAL SALINE 1000 ML 1,000 ML IV ONE (09:23)
[2018-12-14 10:10] LABS: APPEARANCE,URINE SLIGHTLY-CLOUDY; BILIRUBIN,URINE NEGATIVE (NEGATIVE); COLOR,URINE YELLOW; GLUCOSE, URINE NEGATIVE (NEGATIVE); KETONES,URINE NEGATIVE (NEGATIVE); LEUKOCYTE ESTERASE,URINE TRACE (NEGATIVE); NITRITE,URINE NEGATIVE (NEGATIVE); PROTEIN,URINE 30 mg/dL (NEGATIVE); URINE SPECIFIC GRAVITY 1.027
[2018-12-14 10:16] LABS: ABSOLUTE EOSINOPHILS # (AUTO) 0.1 10^3/uL (0.0-0.6); ABSOLUTE LYMPHOCYTES (AUTO) 1.9 10^3/uL (0.5-4.7); ABSOLUTE MONOCYTES (AUTO) 0.7 10^3/uL (0.1-1.4); BASOPHILS % (AUTO) 0.3 % (0-2); EOSINOPHILS % (AUTO) 0.9 % (0-6); HEMATOCRIT 32.9 % (36.0-47.0); HEMOGLOBIN 11.3 g/dL (12.0-15.5); LYMPHOCYTES % (AUTO) 21.4 % (13-45); MEAN CORPUSCULAR HEMOGLOBIN 28.6 pg (27.0-33.4); MEAN CORPUSCULAR HGB CONC 34.3 g/dL (32.0-36.0); MEAN CORPUSCULAR VOLUME 83 fl (80-97); MONOCYTES % (AUTO) 8.5 % (3-13); PLATELET COUNT 381 10^3/uL (150-450); RED BLOOD COUNT 3.95 10^6/uL (3.72-5.28); SEGMENTED NEUTROPHILS % (AUTO) 68.9 % (42-78); TOTAL CELLS COUNTED % (AUTO) 100 %; WHITE BLOOD COUNT 8.8 10^3/uL (4.0-10.5)
[2018-12-14 10:32] LABS: ALBUMIN 3.6 g/dL (3.5-5.0); ALKALINE PHOSPHATASE 62 U/L (38-126); ANION GAP 8 (5-19); ASPARTATE AMINO TRANSFERASE 27 U/L (14-36); BILIRUBIN,DIRECT 0.1 mg/dL (0.0-0.4); BILIRUBIN,TOTAL 0.3 mg/dL (0.2-1.3); BLOOD UREA NITROGEN 5 mg/dL (7-20); CALCIUM 9.4 mg/dL (8.4-10.2); CARBON DIOXIDE 21 mmol/L (22-30); CHLORIDE 107 mmol/L (98-107); GLUCOSE 119 mg/dL (75-110); TOTAL PROTEIN 6.8 g/dL (6.3-8.2)
--- NOTE | 2018-12-14 12:50 | RADIOLOGY REPORT (SQ) ---
EXAM DESCRIPTION: U/S ABDOMEN LIMITED W/O DOP COMPLETED DATE/TIME: 12/14/2018 12:29 pm REASON FOR STUDY: epigastric cramping, 17 weeks preg COMPARISON: None. TECHNIQUE: Dynamic and static grayscale images acquired of the abdomen and recorded on PACS. Additio do selected color Doppler and spectral images recorded. LIMITATIONS: None. FINDINGS: PANCREAS: No masses. Visualized pancreatic duct normal caliber. LIVER: No masses. Echotexture normal. LIVER VASCULATURE: Normal directional flow of the main portal vein and hepatic veins. GALLBLADDER: No stones. Normal wall thickness. No pericholecystic fluid. ULTRASOUND-DETECTED COOPER'S SIGN: Negative. INTRAHEPATIC DUCTS AND COMMON DUCT: CBD and intrahepatic ducts normal caliber. No filling defects. INFERIOR VENA CAVA: Normal flow. AORTA: No aneurysm. RIGHT KIDNEY: Normal size. Normal echogenicity. No solid or suspicious masses. No hydronephrosis. No calcifications. PERITONEAL AND RIGHT PLEURAL SPACE: No ascites or effusions. OTHER: No other significant findings. IMPRESSION: NORMAL RIGHT UPPER QUADRANT ULTRASOUND. TECHNICAL DOCUMENTATION: JOB ID: [id number]- All Rights Reserved Reading location - IP/workstation name: [email or web address]
--- NOTE | 2018-12-14 12:55 | RADIOLOGY REPORT (SQ) ---
EXAM DESCRIPTION: U/S OB 14+ TA/1 GEST W/DOPPLER COMPLETED DATE/TIME: 12/14/2018 12:36 pm REASON FOR STUDY: lower abd cramping COMPARISON: 10/04/2016 TECHNIQUE: Static and Dynamic grayscale imaging performed of gravid uterus using transabdominal appr oach. Additional selected color Doppler and spectral images recorded. All stored on PACS. LIMITATIONS: Limiting body habitus. FINDINGS: FETUSES SEEN:1 EGA: 18 week 2 day Calculated using BPD,FL,HC,AC documented on images. Relatively close to clinical dating, 17 week 3 day. LAUREEN: 05/15/2019 EFW: 222 grams PERCENTILE: Not calculated. GLENROY: Largest vertical pocket 4.7 cm PLACENTA: Posterior. GRADE: I PRESENTATION: Transverse head maternal left ANATOMY: HEART RATE: 141 beats per minute. FOUR CHAMBER HEART: Not visualized. THREE VESSEL CORD: Yes. CORD INSERTION: Visualized. KIDNEYS AND BLADDER: Kidneys not well demonstrated. Bladder unremarkable. STOMACH: Visualized. Appears normal. SPINE: Limited visualization of the spine. Grossly normal. BRAIN AND LATERAL VENTRICLES: Visualized. Appear normal. OTHER: No other significant finding. MATERNAL ADNEXA: Maternal ovaries not visualized. CERVICAL LENGTH: 4.4 cm. Closed. OTHER: No other significant finding. IMPRESSION: LIVING INTRAUTERINE . ESTIMATED GESTATIONAL AGE 18 week 2 day NO VISUALIZED ANOMALIES. Trimester of : Second trimester - 13 weeks 1 day to 27 weeks 6 days. TECHNICAL DOCUMENTATION: JOB ID: [id number] [employer]- All Rights Reserved Reading location - IP/workstation name: [email or web address]
[2018-12-14 13:15] VITALS: BP 110/65
== END 2018-12-14 13:20 | disposition home or self-care (01) ==
LOC: ER 08:33
DX: O26.892 Other specified pregnancy related conditions, second trimester (principal); R10.84 Generalized abdominal pain; O99.612 Diseases of the digestive system complicating pregnancy, second trimester; K21.9 Gastro-esophageal reflux disease without esophagitis; Z79.899 Other long term (current) drug therapy; O21.9 Vomiting of pregnancy, unspecified; O99.512 Diseases of the respiratory system complicating pregnancy, second trimester; J45.909 Unspecified asthma, uncomplicated; Z3A.17 17 weeks gestation of pregnancy; Z88.0 Allergy status to penicillin; Z87.891 Personal history of nicotine dependence
CPT/HCPCS: 99284; 96360; 96361; 36415; 87086; 84702; 83690; 85025; 80053; 81001; 76805; 76705; 93976; J7030

== ENCOUNTER 2019-04-05 08:22 | Outpatient (CLI) | payer MEDICAID ==
[2019-04-05] MEDS ORDERED: PROMETHAZINE HCL INJ 25 MG/1 ML VIAL ONE (09:24)
[2019-04-05] MEDS ORDERED: PROMETHAZINE HCL INJ 25 MG/1 ML VIAL IV ONE (09:25)
[2019-04-05 09:27] LABS: APPEARANCE,URINE SLIGHTLY-CLOUDY; BILIRUBIN,URINE SMALL (NEGATIVE); COLOR,URINE DARK YELLOW; GLUCOSE, URINE NEGATIVE (NEGATIVE); KETONES,URINE 80 mg/dL (NEGATIVE); LEUKOCYTE ESTERASE,URINE SMALL (NEGATIVE); NITRITE,URINE NEGATIVE (NEGATIVE); PROTEIN,URINE 100 mg/dL (NEGATIVE)
[2019-04-05] MEDS: RINGERS SOLUTION,LACTATED 1,000 ML IV PRN ×2 (09:28→09:57)
[2019-04-05] MEDS ORDERED: DEXTROSE 5%-LACTATED RINGERS 1,000 ML IV PRN (10:48)
--- NOTE | 2019-04-05 10:58 | Non Stress Test Report ---
Non Stress Test Datetime Report Generated by CPN: 04/05/2019 10:58 DEMOGRAPHIC Test Number: 1 EGA NST: 33.3 INDICATION Indication for Study (NST) Other: LC ordered by provider VITAL SIGNS Temperature - NST: 98.9 Pulse - NST: 88 RESP - NST: 16 NBPSYS NST: 103 NBPDIA NST: 58 MONITORING Monitor Explained: Monitor Explained; Test Explained; Patient Verbalized Understanding Time on Monitor: 04/05/2019 08:50 Time off Monitor: 04/05/2019 09:30 NST Duration: 40 NST INTERVENTIONS NST Interventions: PO Hydration; Reposition Patient Physician Notified NST: A Ho CNM BABY A: [id number] BABY A Movement : Present Contraction Frequency : irr FHR Baseline : 140 Accelerations : 15X15 Decelerations : None Variability : Moderate 6-25bpm NST Review: Meets Criteria for Reactive NST NST Review and Verified By : Arabella Wilmer RNC NST Results: Reactive NST REPORT Report Trigger: Send Report
== END 2019-04-05 12:05 | disposition home or self-care (01) ==
LOC: LC 08:22
PROVIDERS: ATTEND Obstetrics & Gynecology
PROC: 4A1HXCZ Monitoring of Products of Conception, Cardiac Rate, External Approach (ICD-10-PCS; principal; 2019-04-05)
DX: O99.283 Endocrine, nutritional and metabolic diseases complicating pregnancy, third trimester (principal); E86.0 Dehydration; K52.9 Noninfective gastroenteritis and colitis, unspecified; O99.333 Smoking (tobacco) complicating pregnancy, third trimester; F17.210 Nicotine dependence, cigarettes, uncomplicated
CPT/HCPCS: 59025; 87086; 81001; J2550

== ENCOUNTER 2019-05-22 12:38 | Inpatient (IN) | payer MEDICAID ==
[2019-05-22] MEDS ORDERED: OXYTOCIN/NORMAL SALINE 20 UNIT/1,000 ML RTUINJ IV PRN ×3 (13:53→22:51)
[2019-05-22 14:17] LABS: ABSOLUTE LYMPHOCYTES (AUTO) 1.5 10^3/uL (0.5-4.7); ABSOLUTE MONOCYTES (AUTO) 0.8 10^3/uL (0.1-1.4); ABSOLUTE NEUT (AUTO) 6.8 10^3/uL (1.7-8.2); BASOPHILS % (AUTO) 0.5 % (0-2); EOSINOPHILS % (AUTO) 0.4 % (0-6); HEMATOCRIT 32.4 % (36.0-47.0); HEMOGLOBIN 11.3 g/dL (12.0-15.5); LYMPHOCYTES % (AUTO) 16.7 % (13-45); MEAN CORPUSCULAR HEMOGLOBIN 28.8 pg (27.0-33.4); MEAN CORPUSCULAR HGB CONC 34.7 g/dL (32.0-36.0); MEAN CORPUSCULAR VOLUME 83 fl (80-97); MONOCYTES % (AUTO) 8.8 % (3-13); PLATELET COUNT 344 10^3/uL (150-450); RED BLOOD COUNT 3.91 10^6/uL (3.72-5.28); RED CELL DISTRIBUTION WIDTH 13.9 % (11.5-14.0); SEGMENTED NEUTROPHILS % (AUTO) 73.6 % (42-78); TOTAL CELLS COUNTED % (AUTO) 100 %; WHITE BLOOD COUNT 9.3 10^3/uL (4.0-10.5)
[2019-05-22 14:18] LABS: APPEARANCE,URINE SLIGHTLY-CLOUDY; BILIRUBIN,URINE NEGATIVE (NEGATIVE); COLOR,URINE YELLOW; GLUCOSE, URINE NEGATIVE (NEGATIVE); KETONES,URINE NEGATIVE (NEGATIVE); LEUKOCYTE ESTERASE,URINE LARGE (NEGATIVE); NITRITE,URINE NEGATIVE (NEGATIVE); PROTEIN,URINE NEGATIVE (NEGATIVE); URINE SPECIFIC GRAVITY 1.008; UROBILINOGEN,URINE NEGATIVE mg/dL (<2.0)
[2019-05-22 14:33] LABS: URINE AMPHETAMINES SCREEN NEGATIVE; URINE BARBITURATES SCREEN NEGATIVE; URINE BENZODIAZEPINES SCREEN NEGATIVE; URINE COCAINE SCREEN NEGATIVE; URINE MARIJUANA (THC) SCREEN NEGATIVE; URINE METHADONE SCREEN NEGATIVE; URINE PHENCYCLIDINE SCREEN NEGATIVE
--- NOTE | 2019-05-22 14:57 | Admission Physical ---
Datetime Report Generated by CPN: 05/22/2019 14:56 CURRENT ADMISSION Chief Complaint: Decreased Movement Indication for Induction: Post Dates Admit Impression : Postterm, Intrauterine ; No Active Labor Admit Plan: Admit to Unit; Initiate Labor Induction Protocol Admit Plan- Other: care at [facility] LAUREEN by LMP confirmed by 6wk 6d U/S at [facility] was disengaged from A in 2016 GBS neg refused GTT testing, had hgbA1c in Max that was 5.6 ALLERGIES Medication Allergies: Yes Medication Allergies: Penicillins/KS/rash (06/22/2017) Latex: No Latex Allergies Food Allergies: NONE Environmental Allergies: NONE OBSTETRICAL HISTORY EDC: 05/21/2019 00:00 : 4 Para: 2 Term: 2 : 0 SAB: 1 IAB: 0 Ectopic: 0 Livin Cesareans: 0 VBACs: 0 Multiple Births: 0 Gestational Diabetes: No Rh Sensitization: No Incompetent Cervix: No CLIF: No Infertility: No ART Treatment: No Uterine Anomaly: No IUGR: No Hx Previous C/S: No Macrosomia: No Hx Loss/Stillborn: No PIH: No Hx : No Placenta Previa/Abruption: No Depression/PP Depression: Yes PTL/PROM: No Post Hemorrhage: No Current Procedures: Ultrasound; NST Obstetrical History Comments: G1- 37 WEEK DEL- BOY- OLIGO G2- 38 WEEK DEL- BOY G3- SAB G4- SAB G5 CURRENT SEE RECORDS Alcohol: No Marijuana : No Cocaine: No Other Illicit Drugs: No Cigarettes: Former Smoker. [id number] Cigarette Comments: STOPPED WITH MEDICAL HISTORY Diabetes: No Blood Transfusion: No Pulmonary Disease (Asthma, TB): Yes Breast Disease: No Hypertension: No 911 Emergency Services Dispatcher Surgery: No Heart Disease: No Hosp/Surgery: Yes Autoimmune Disorder: No Anesthetic Complications: No Kidney Disease: No Abnormal Pap Smear: No Neuro/Epilepsy: No Psychiatric Disorders: Yes Other Medical Diseases: No Hepatitis/Liver Disease: No Significant Family History: No Varicosities/Phlebitis: No Trauma/Violence : No Thyroid Dysfunction: No Medical History Comments: ANXIETY _ DEPRESSION CHILDHOOD ASTHMA CHILDBIRTH INFECTIOUS HISTORY Gonorrhea: No Genital Herpes: No Chlamydia: No Tuberculosis: No Syphilis: No Hepatitis: No HIV/AIDS Exposure: No Rash or Viral Illness: No HPV: No PHYSICAL EXAM General: Normal HEENT: Deferred Neurologic: Normal Thyroid: Deferred Heart: Normal Lungs: Normal Breast: Deferred Back: Deferred Abdomen: Normal Genitourinary Exam: Normal Extremities: Normal DTRs: Deferred Pelvic Type: Adequate Vital Signs: Reviewed VAGINAL EXAM Dilatation: 2 Effacement: 50 Station: -3 MEMBRANES Membranes: Intact FETUS A EGA: 40.1 Monitoring: External US FHR- Baseline: 135 Variability: Moderate 6-25bpm Accelerations: 10X10 Decelerations: None; Variable FHR Category: Category II Presentation: Vertex Admit Comment: admit for IOL, post term with c/o DFM Proven pelvis 5lb 13oz PLANS FOR LABOR AND DELIVERY Labor and Delivery: None Pain Management: Epidural Feeding Preference: Both Benefit of Breast Feed Discussed: Yes Circumcision: Yes INFORMED CONSENT Assignment: Aurea Silva MD Signature: with User ID: [email or web address] : with User ID: [email or web address]
--- NOTE | 2019-05-22 18:23 | RADIOLOGY REPORT (SQ) ---
EXAM DESCRIPTION: U/S OB LIMITED COMPLETED DATE/TIME: 05/22/2019 6:05 pm REASON FOR STUDY: limited care, EFW?, fluid COMPARISON: None. TECHNIQUE: Limited transabdominal grayscale ultrasound for evaluation of specific requested obstetri javi parameters. LIMITATIONS: None. FINDINGS: CERVICAL LENGTH: 2.9 cm Closed. GLENROY: 2.1 cm. FHR: 132 beats per minute. PRESENTATION: Cephalic. PLACENTA: Incompletely assessed. No suggestion of overt abruption or previa. ANATOMY: Not assessed OTHER: Estimated weight is 7 lb 0 oz +/- 17 oz. IMPRESSION: 1. Living IUP. 2. Oligohydramnios, GLENROY 2.1 cm. Trimester of : Third trimester - 28 weeks to delivery. TECHNICAL DOCUMENTATION: JOB ID: [id number] [employer]- All Rights Reserved Reading location - IP/workstation name: [email or web address]
[2019-05-22] MEDS ORDERED: OXYTOCIN 10 UNIT/ML VIAL ONE (18:27)
[2019-05-22] MEDS ORDERED: MISOPROSTOL 0.2 MG TABLET ONE (18:27)
[2019-05-22] MEDS ORDERED: LIDOCAINE 1% INJ-PF (10 MG/ML) 30 ML SDV ONE (18:28)
[2019-05-22] MEDS ORDERED: OXYTOCIN/NORMAL SALINE 20 UNIT/1,000 ML RTUINJ ONE (18:28)
[2019-05-22] MEDS ORDERED: PHENYLEPHRINE HCL INJ/PF 10 MG/1 ML SDV ONE (21:44)
[2019-05-22] MEDS ORDERED: FENTANYL/BUPIVACAINE/NS/PF 300 MCG/150 ML RTUINJ EPI ONE (21:45)
[2019-05-22] MEDS ORDERED: EPHEDRINE SULFATE INJ 50 MG/1 ML AMPULE ONE (21:45)
[2019-05-22] MEDS ORDERED: FENTANYL CITRATE INJ/PF 100 MCG/2 ML AMPUL ONE (21:45)
[2019-05-22] MEDS ORDERED: BUPIVACAINE HCL 0.25 % INJ/PF (2.5 MG/1 ML) 30 ML VIAL ONE (21:45)
[2019-05-22] MEDS ORDERED: PSEUDOEPHEDRINE HCL 30 MG TABLET PO PRN (22:51)
[2019-05-22] MEDS ORDERED: MAGNESIUM HYDROXIDE SUSP 30 ML UDCUP PO PRN (22:51)
[2019-05-22] MEDS ORDERED: PROMETHAZINE HCL 25 MG SUPP.RECT PR PRN (22:51)
[2019-05-22] MEDS ORDERED: PROMETHAZINE HCL 25 MG TABLET PO PRN (22:51)
[2019-05-22] MEDS ORDERED: DIPH/PERTUSS(ACELL)/TETANUS VAC/PF 0.5 ML SYR (>=10YO) IM PRN (22:51)
[2019-05-22] MEDS ORDERED: ACETAMINOPHEN WITH CODEINE #3 TABLET PO PRN (22:51)
[2019-05-22] MEDS ORDERED: DIBUCAINE 1% OINTMENT 28 GM TP PRN (22:51)
[2019-05-22] MEDS ORDERED: MEASLES,MUMPS&RUBELLA VACC/PF 0.5 ML VIAL SUBCUT PRN (22:51)
[2019-05-22] MEDS ORDERED: DIPHENHYDRAMINE HCL 25 MG CAPSULE PO PRN (22:51)
[2019-05-22] MEDS ORDERED: GLYCERIN/WITCH HAZEL LEAF 1 EACH MED..WIPE TP PRN (22:51)
[2019-05-22] MEDS ORDERED: PROMETHAZINE HCL INJ 25 MG/1 ML VIAL IV PRN (22:51)
[2019-05-22] MEDS ORDERED: BENZOCAINE/MENTHOL AEROSOL SPRAY 56 ML TOP PRN (22:51)
[2019-05-22] MEDS ORDERED: ZOLPIDEM TARTRATE 5 MG TABLET PO PRN (22:51)
[2019-05-22] MEDS ORDERED: ACETAMINOPHEN 325 MG TABLET PO PRN (22:51)
[2019-05-22] MEDS ORDERED: NA PHOS,M-B/NA PHOS,DI-BA (ADULT) 133 ML ENEMA PR PRN (22:51)
[2019-05-22] MEDS ORDERED: FAMOTIDINE 20 MG TABLET PO SCH (23:00)
[2019-05-22] MEDS ORDERED: FAMOTIDINE 20 MG TABLET PO ONE (23:45)
--- NOTE | 2019-05-23 00:38 | Delivery Summary ---
Del Sum A-C Datetime Report Generated by CPN: 05/23/2019 00:37 DELIVERY PERSONNEL DELIVERY PERSONNEL: [id number] Delivery Doctor:: Aurea Silva MD Labor and Delivery Nurse:: Fadumo Mckeon RNsenior research project manager Nurse:: Aisha Lama, RNC MATERNAL INFORMATION Delivery Anesthesia: Epidural Medications After Delivery: Pitocin Bolus-Please Comment; Pitocin Drip 20 Units/1000ml NSS Meds After Delivery Comment: Pitocin 20 units in 1000 mL of NS bolusing after delivery Estimated Blood Loss (ml): 50 Delivery QBL: 50 Maternal Complications: Precipitous Labor (<3hrs); Other Other Maternal Complications: oligohydramnios Provider Comments: VMI delivered in SANDOR presentation. No nuchal cord. Shoulders and body delivered without difficulty. Cord doubly clamped and cut and infant to maternal abdomen for NRP. Placenta delivered intact spontaneously. FF at U. No perineal lacerations. Good hemostasis. Mother and baby stable upon provider leaving the room. LABOR SUMMARY EDC: 05/21/2019 00:00 No. Babies in Womb: 1 Attempted: No Labor Anesthesia: Epidural LABOR INFORMATION Reason for Induction: Oligohydramnios Onset of Labor: 05/22/2019 22:18 Complete Dilatation: 05/22/2019 22:31 Cervical Ripening Agents: Paz Balloon Oxytocin: Induction Group B Beta Strep: NEGATIVE Antibiotics # of Doses: 0 Steroids Given: None Reason Steroids Not Administered: Not Applicable MEMBRANES Membranes Rupture Method: Spontaneous Rupture of Membranes: 05/22/2019 20:44 Length of Rupture (hr): 1.93 Amniotic Fluid Color: Clear Amniotic Fluid Amount: Small Amniotic Fluid Odor: Normal STAGES OF LABOR Stage 1 hr: 0 Stage 1 min: 13 Stage 2 hr: 0 Stage 2 min: 9 Stage 3 hr: 0 Stage 3 min: 3 Total Time in Labor hr: 0 Total Time in Labor min: 25 VAGINAL DELIVERY Episiotomy: None Laceration #1: None Laceration Extension #1: N/A Laceration Repair: Not Applicable Sponge Count Correct: Yes Sharps Count Correct: Yes CSECTION DELIVERY Primary Indication: N/A Secondary Indication: N/A CSection Incidence: N/A Labor: N/A Elective: N/A CSection Incision: N/A BABY A INFORMATION Delivery Date/Time: 05/22/2019 22:40 Method of Delivery: Vaginal Born in Route : No : N/A Forceps: N/A Vacuum Extraction: N/A Shoulder Dystocia : No PRESENTATION/POSITION BABY A Presentation: Cephalic Cephalic Presentation: Vertex Vertex Position: Left Occipital Anterior Breech Presentation: N/A PLACENTA INFORMATION BABY A Placenta Delivery Time : 05/22/2019 22:43 Placenta Method of Delivery: Spontaneous Placenta Status: Delivered SCORES BABY A Heart Rate 1 min: >100 bpm Resp Effort 1 min: Good Cry Reflex Irritability 1 min: Cough or Sneeze or Pulls Away Muscle Tone 1 min: Active Motion Color 1 min: Body [place], Extremities Blue Resuscitation Effort 1 min: Tactile Stimulation SCORE 1 MIN: 9 Heart Rate 5 min: >100 bpm Resp Effort 5 min: Good Cry Reflex Irritability 5 min: Cough or Sneeze or Pulls Away Muscle Tone 5 min: Active Motion Color 5 min: Body [place], Extremities Blue Resuscitation Effort 5 min: Tactile Stimulation SCORE 5 MIN: 9 INFORMATION BABY A Gestational Age at Delivery: 40.1 Gestational Status: Full Term- 39- 40.6 Weeks Outcome : Liveborn Condition : Stable Sex: Male IDENTIFICATION BABY A Infant Verification Date/Time: 05/22/2019 22:51 ID Band Number: [id number] Mother's Name Verified: Yes RN Verifying : D Bellavance RN/K Mike RN WEIGHT/LENGTH BABY A Infant Birthweight (gm): 3088 Infant Weight (lb): 6 Weight (oz): 13 Infant Length (in): 19.20 Length (cm): 48.77 CORD INFORMATION BABY A No. Cord Vessels: 3 Nuchal Cord : N/A Cord Blood Taken: Yes-For Eval (Mom's Blood Type - or O+) Suction: Mouth; Nose ASSESSMENT BABY A Skin to Skin: Yes Skin to Skin Time (min): 60 BABY B INFORMATION : N/A SIGNATURES Signature: with User ID: [email or web address] : I was personally available for consultation and serving as supervising physician for the MLP.
--- NOTE | 2019-05-23 01:25 | Warning Signs in Babies ---
VOD Warning Signs Datetime Report Generated by [facility]: 05/23/2019 01:25 VOD#608 -Warning Signs in Babies: Viewed with Parent(s)/Family (05/23/2019 01:00:Fadumo Mckeon RN)
[2019-05-23] MEDS: ACETAMINOPHEN WITH CODEINE #3 TABLET PO PRN ×2 (02:33→09:57)
[2019-05-23] MEDS: IBUPROFEN 800 MG TABLET PO SCH ×3 (05:14→21:28)
[2019-05-23 07:25] LABS: HEMATOCRIT 32.6 % (36.0-47.0); HEMOGLOBIN 11.2 g/dL (12.0-15.5); MEAN CORPUSCULAR HEMOGLOBIN 27.9 pg (27.0-33.4); MEAN CORPUSCULAR HGB CONC 34.2 g/dL (32.0-36.0); MEAN CORPUSCULAR VOLUME 82 fl (80-97); PLATELET COUNT 381 10^3/uL (150-450); RED BLOOD COUNT 3.99 10^6/uL (3.72-5.28); RED CELL DISTRIBUTION WIDTH 14.2 % (11.5-14.0); WHITE BLOOD COUNT 14.9 10^3/uL (4.0-10.5)
[2019-05-23] MEDS: DOCUSATE SODIUM 100 MG CAPSULE PO SCH ×2 (09:57→17:32)
[2019-05-23] MEDS: SENNOSIDES/DOCUSATE 8.6-50 MG 1 EACH TABLET PO SCH (09:58)
[2019-05-23] MEDS: FERROUS SULFATE 325 MG TABLET PO SCH ×2 (09:58→17:32)
[2019-05-23] MEDS: FAMOTIDINE 20 MG TABLET PO SCH ×2 (09:58→21:27)
[2019-05-23] MEDS: PRENATAL VITAMIN W DHA CAPSULE PO SCH (09:58)
--- NOTE | 2019-05-23 14:00 | PDOC PROGRESS REPORT ---
Subjective-OB Progress Note for:: 05/23/19 Subjective: 28yo G5 now P3 s/p ppd1. Ambulating and voiding without difficulty. Reports pain well controlled with medication, no concerns today Physical Exam (OB) Vital Signs: Temp Pulse Resp BP Pulse Ox 97.9 F 56 L 18 125/75 100 05/23/19 11:19 05/23/19 11:19 05/23/19 11:19 05/23/19 11:19 05/23/19 11:19 Intake & Output 05/22/19 05/23/19 05/24/19 06:59 06:59 06:59 Output Total 200 Balance -200 Weight 100.6 kg - General General Appearance: Appears well In distress: None - PIH/Pre-Eclampsia Clonus: Negative Headache: Absent Epigastric Pain: No Visual Changes: No - Episiotomy/Laceration Site Condition: N/A - Lochia Lochia Amount: Small 10-25 ml Lochia Color: Rubra/Red - Abdomen Description: Soft, Round Hernia Present: No Fundal Description: Firm, Midline Fundal Height: u/u - u/2 - Respiratory Respiratory Status: No respiratory distress - Extremities Upper extremity: Normal inspection Lower extremities: Normal inspection - Psychological Associated symptoms: Normal affect, Normal mood Objective-Diagnostic Laboratory: 05/23/19 06:31 05/22/19 05/22/19 05/22/19 13:50 13:52 13:52 WBC 9.3 RBC 3.91 Hgb 11.3 L Hct 32.4 L MCV 83 MCH 28.8 MCHC 34.7 RDW 13.9 Plt Count 344 Seg Neutrophils % 73.6 Urine Color YELLOW Urine Appearance SLIGHTLY-CLOUDY Urine pH 7.0 Ur Specific [place] 1.008 Urine Protein NEGATIVE Urine Glucose (UA) NEGATIVE Urine Ketones NEGATIVE Urine Blood NEGATIVE Urine Nitrite NEGATIVE Ur Leukocyte Esterase LARGE H Blood Type O POSITIVE Antibody Screen NEGATIVE 05/23/19 06:31 WBC 14.9 H RBC 3.99 Hgb 11.2 L Hct 32.6 L MCV 82 MCH 27.9 MCHC 34.2 RDW 14.2 H Plt Count 381 Seg Neutrophils % Urine Color Urine Appearance Urine pH Ur Specific [place] Urine Protein Urine Glucose (UA) Urine Ketones Urine Blood Urine Nitrite Ur Leukocyte Esterase Blood Type Antibody Screen Assessment and Plan(PN) - Assessment and Plan (1) History of suicidal ideation Is this a current diagnosis for this admission?: Yes Plan: discharge planning place. Denies h/s ideation today (2) Oligohydramnios antepartum Qualifiers: Fetus number: single or unspecified fetus Qualified Code(s): O41.00X0 - Oligohydramnios, unspecified trimester, not applicable or unspecified Is this a current diagnosis for this admission?: Yes Plan: delivered (3) Vaginal delivery Is this a current diagnosis for this admission?: Yes Plan: routine pp care (4) Anxiety Is this a current diagnosis for this admission?: Yes Plan: continue to monitor closely. Follow pp at one week or sooner prn (5) Obesity Qualifiers: Obesity classification: unspecified obesity classification Serious obesity comorbidity presence: unspecified whether serious comorbidity present Is this a current diagnosis for this admission?: Yes Plan: encouraged healthy eating and exercising (6) Smoker Is this a current diagnosis for this admission?: Yes Plan: cessation encouraged (7) hypertension Is this a current diagnosis for this admission?: Yes Plan: continue to monitor, if continues to be elevated might need antihypertensives - Time Spent with Patient Time with patient: Less than 15 minutes Smoking Education Provided: Over 3 minutes Medications reviewed and adjusted accordingly: Yes - Disposition Anticipated Discharge: Home Within: within 24 hours
[2019-05-24] MEDS: IBUPROFEN 800 MG TABLET PO SCH (07:46)
[2019-05-24] MEDS: DOCUSATE SODIUM 100 MG CAPSULE PO SCH (09:31)
[2019-05-24] MEDS: PRENATAL VITAMIN W DHA CAPSULE PO SCH (09:31)
[2019-05-24] MEDS: FAMOTIDINE 20 MG TABLET PO SCH (09:31)
[2019-05-24] MEDS: SENNOSIDES/DOCUSATE 8.6-50 MG 1 EACH TABLET PO SCH (09:32)
[2019-05-24] MEDS: FERROUS SULFATE 325 MG TABLET PO SCH (09:32)
--- NOTE | 2019-05-24 10:21 | PDOC DISCHARGE SUMMARY ---
Impression - Admit/DC Date/PCP Admission Date/Primary Care Provider: 05/22/19 13:57 SONYA MORENO CNM Discharge Date: 05/24/19 - Discharge Diagnosis (1) History of suicidal ideation Is this a current diagnosis for this admission?: Yes (2) Oligohydramnios antepartum Is this a current diagnosis for this admission?: Yes (3) Vaginal delivery Is this a current diagnosis for this admission?: Yes - Additional Information Discharge Diet: Regular Discharge Activity: Balance Activity w/Rest, Pelvic Rest Referrals: [facility] [Provider Group] Prescriptions: Ibuprofen [Motrin 800 mg Tablet] 800 mg PO Q8HP PRN #60 tablet PRN Reason: Home Medications: Ode170/Iron Fum/Folic/Docusate [ 19 Tablet] 1 tab PO DAILY 05/22/19 Ibuprofen [Motrin 800 mg Tablet] 800 mg PO Q8HP PRN #60 tablet 05/24/19 HPI Gestational Age: 40+1 Reason(s) for Admission: Induction of Labor Procedures: NST Intrapartum Procedure(s): Spontaneous Vaginal Delivery Results Laboratory Results: WBC 14.9 10^3/uL (4.0-10.5) H 05/23/19 06:31 RBC 3.99 10^6/uL (3.72-5.28) 05/23/19 06:31 Hgb 11.2 g/dL (12.0-15.5) L 05/23/19 06:31 Hct 32.6 % (36.0-47.0) L 05/23/19 06:31 MCV 82 fl (80-97) 05/23/19 06:31 MCH 27.9 pg (27.0-33.4) 05/23/19 06:31 MCHC 34.2 g/dL (32.0-36.0) 05/23/19 06:31 RDW 14.2 % (11.5-14.0) H 05/23/19 06:31 Plt Count 381 10^3/uL (150-450) 05/23/19 06:31 Lymph % (Auto) 16.7 % (13-45) 05/22/19 13:52 [place] % (Auto) 8.8 % (3-13) 05/22/19 13:52 Eos % (Auto) 0.4 % (0-6) 05/22/19 13:52 Baso % (Auto) 0.5 % (0-2) 05/22/19 13:52 Absolute Neuts (auto) 6.8 10^3/uL (1.7-8.2) 05/22/19 13:52 Absolute Lymphs (auto) 1.5 10^3/uL (0.5-4.7) 05/22/19 13:52 Absolute Monos (auto) 0.8 10^3/uL (0.1-1.4) 05/22/19 13:52 Absolute Eos (auto) 0.0 10^3/uL (0.0-0.6) 05/22/19 13:52 Absolute Basos (auto) 0.0 10^3/uL (0.0-0.2) 05/22/19 13:52 Seg Neutrophils % 73.6 % (42-78) 05/22/19 13:52 Urine Color YELLOW 05/22/19 13:50 Urine Appearance SLIGHTLY-CLOUDY 05/22/19 13:50 Urine pH 7.0 (5.0-9.0) 05/22/19 13:50 Ur Specific [place] 1.008 05/22/19 13:50 Urine Protein NEGATIVE mg/dL (NEGATIVE) 05/22/19 13:50 Urine Glucose (UA) NEGATIVE mg/dL (NEGATIVE) 05/22/19 13:50 Urine Ketones NEGATIVE mg/dL (NEGATIVE) 05/22/19 13:50 Urine Blood NEGATIVE (NEGATIVE) 05/22/19 13:50 Urine Nitrite NEGATIVE (NEGATIVE) 05/22/19 13:50 Urine Bilirubin NEGATIVE (NEGATIVE) 05/22/19 13:50 Urine Urobilinogen NEGATIVE mg/dL (<2.0) 05/22/19 13:50 Ur Leukocyte Esterase LARGE (NEGATIVE) H 05/22/19 13:50 Urine Ascorbic Acid 20 (NEGATIVE) H 05/22/19 13:50 Membranes Rupture NEGATIVE (NEGATIVE) 05/22/19 18:52 Urine Opiates Screen NEGATIVE 05/22/19 13:50 Urine Methadone Screen NEGATIVE 05/22/19 13:50 Ur Barbiturates Screen NEGATIVE 05/22/19 13:50 Ur Phencyclidine Scrn NEGATIVE 05/22/19 13:50 Ur Amphetamines Screen NEGATIVE 05/22/19 13:50 U Benzodiazepines Scrn NEGATIVE 05/22/19 13:50 Urine Cocaine Screen NEGATIVE 05/22/19 13:50 U Marijuana (THC) Screen NEGATIVE 05/22/19 13:50 RPR NONREACTIVE (NONREACTIVE) 05/22/19 13:52 Blood Type O POSITIVE 05/22/19 13:52 Antibody Screen NEGATIVE 05/22/19 13:52 Impressions: Obstetrics Ultrasound 05/22/19 00:00 IMPRESSION: 1. Living IUP. 2. Oligohydramnios, [place] 2.1 cm. Trimester of : Third trimester - 28 weeks to delivery. Plan Plan of Treatment: follow up in 4 weeks at [facility] for post check
[2019-05-24 11:18] VITALS: BP 139/91
== END 2019-05-24 13:11 | disposition home or self-care (01) | DRG 807 ==
LOC: LC 12:38 → LR 13:57 → 2S 05-23 02:05
PROVIDERS: ADMIT Student in an Organized Health Care Education/Training Program; ATTEND Student in an Organized Health Care Education/Training Program
PROC: 10E0XZZ Delivery of Products of Conception, External Approach (ICD-10-PCS; principal; 2019-05-22)
PROC: 3E033VJ Introduction of Other Hormone into Peripheral Vein, Percutaneous Approach (ICD-10-PCS; 2019-05-22)
PROC: 0U7C7ZZ Dilation of Cervix, Via Natural or Artificial Opening (ICD-10-PCS; 2019-05-22)
DX: O41.03X0 Oligohydramnios, third trimester, not applicable or unspecified (principal); Z37.0 Single live birth; O99.344 Other mental disorders complicating childbirth; O16.4 Unspecified maternal hypertension, complicating childbirth; O62.3 Precipitate labor; O36.8130 Decreased fetal movements, third trimester, not applicable or unspecified; O48.0 Post-term pregnancy; O99.214 Obesity complicating childbirth; Z3A.40 40 weeks gestation of pregnancy
CPT/HCPCS: 36415; 76815; 80307; 81005; 84112; 85025; 85027; 86592; 86850; 86900; 86901; J2370; J2590; J3010; J3490

== ENCOUNTER 2019-11-20 09:39 | Emergency (ER) | payer MEDICAID ==
[2019-11-20 09:59] VITALS: BP 142/107
[2019-11-20] MEDS ORDERED: OXYCODONE-ACETAMINOPHEN 5-325 MG TABLET PO ONE (11:05)
[2019-11-20] MEDS ORDERED: ONDANSETRON 4 MG TAB.RAPDIS PO ONE (11:07)
--- NOTE | 2019-11-20 11:07 | ER Document Report ---
ED Fall - General Chief Complaint: Knee Injury Stated Complaint: FALL/RIGHT KNEE PAIN,SWELLING Time Seen by Provider: 11/20/19 11:01 Notes: CHIEF COMPLAINT: Right knee injury HPI: 28-year-old female presenting for right knee injury. Tripped over a diaper bag at home landing directly on the right knee. Cannot weight-bear secondary to pain. Denies ankle or hip injury ROS: See HPI - all other systems were reviewed and are otherwise negative Constitutional: no fever Integumentary: no rash Allergy: no hives Musculoskeletal: + extremity pain or swelling Neurological: no numbness/tingling MEDICATIONS: I agree with the patient medications as charted by the RN. ALLERGIES: I agree with the allergies as charted by the RN. PAST MEDICAL HISTORY/PAST SURGICAL HISTORY: Reviewed and agree as charted by RN. SOCIAL HISTORY: Reviewed and agree as charted by RN. FAMILY HISTORY: No significant familial comorbid conditions directly related to patient complaint EXAM: Reviewed vital signs as charted by RN. CONSTITUTIONAL: Alert and oriented and responds appropriately to questions. Well-appearing; well-nourished HEAD: Normocephalic; atraumatic EYES: PERRL; Conjunctivae clear, sclerae non-icteric ENT: normal nose; no rhinorrhea; moist mucous membranes; pharynx without lesions noted, no uvula edema or deviation, no tonsillar hypertrophy, phonation normal NECK: Supple without meningismus; non-tender; no cervical lymphadenopathy, no m asses CARD: symmetric distal pulses RESP: Normal chest excursion without splinting or tachypnea ABD/GI: non-distended BACK: The back appears normal EXT: Limited flexion extension of the right leg at the knee secondary to pain. There is a large effusion over the right knee anteriorly. No ankle or hip discomfort on palpation or range of motion. Negative anterior drawer sign, limited varus valgus rotation secondary to pain but no definitive laxity. Popliteal, dorsalis pedis and posterior tibial pulses are present in the right lower extremity. Sensation is intact in the toes with capillary refill less than 3 seconds SKIN: Normal color for age and race; warm; dry; good turgor; no acute lesions noted NEURO: Moves all extremities equally; Motor and sensory function intact PSYCH: The patient's mood and manner are appropriate. Grooming and personal hygiene are appropriate. MDM: 28-year-old female with injury to the right knee from a fall. I suspect a ligamentous injury. Will obtain x-ray for fracture, knee immobilizer, orthopedic follow-up for outpatient imaging. I did speak with the patient about immobilizer use and precautions TRAVEL OUTSIDE OF THE [place] IN LAST 30 DAYS: No - Related data Allergies/Adverse Reactions: Penicillins Allergy (Mild, Verified 11/20/19 10:57) rash Past Medical History - Social History Smoking Status: Current Every Day Smoker Frequency of alcohol use: None Drug Abuse: None Family History: Arthritis, CAD, CVA, DM, Hyperlipidemia, Hypertension, Thyroid Disfunction Patient has homicidal ideation: No Pulmonary Medical History: Reports: Hx Asthma, Hx Bronchitis Renal/ Medical History: Denies: Hx Peritoneal Dialysis GI Medical History: Reports: Hx Gastroesophageal Reflux Disease Past Surgical History: Reports: Hx Oral Surgery - Immunizations Immunizations up to date: No Hx Diphtheria, Pertussis, Tetanus Vaccination: Yes Physical Exam - Vital signs Vitals: Pulse Resp BP Pulse Ox 99 20 142/107 H 99 11/20/19 09:56 11/20/19 09:56 11/20/19 09:56 11/20/19 09:56 Course - Re-evaluation Re-evalutation: 11/20/19 11:25 I suspect patient has a tibial plateau fracture on my review of the x-ray will discuss with orthopedics. discussed with Dr. Duran, attending 11/20/19 11:[address] Garcia orthopedics. Request CT prior to discharge they will follow in office, does not need to wait on results of the CT. Immobilizer crutches pain medicine 11/20/19 11:34 I spoke with the patient at length, we discussed her results, she will go to CT, be placed back in her immobilizer and will follow up with orthopedics - Vital Signs Vital signs: Temp Pulse Resp BP Pulse Ox 97.9 F 99 20 142/107 H 99 11/20/19 11:06 11/20/19 09:56 11/20/19 09:56 11/20/19 09:56 11/20/19 09:56 Procedures - Immobilization Right Knee Time completed: 11:33 Pre-Proc Neuro Vasc Exam: Normal Immobilizer type: Crutches, Knee immobilizer Performed by: PCT Post-Proc Neuro Vasc Exam: Normal, Unchanged from pre-exam Alignment checked and good: Yes Discharge - Discharge Clinical Impression: Fall Qualifiers: Encounter type: initial encounter Qualified Code(s): W19.XXXA - Unspecified fall, initial encounter Tibial plateau fracture, right Qualifiers: Encounter type: initial encounter Fracture type: closed Qualified Code(s): S82.141A - Displaced bicondylar fracture of right tibia, initial encounter for closed fracture Condition: Stable Disposition: HOME, SELF-CARE Additional Instructions: 1. ice and elevate the lower extremity as much as possible 2. utilize the crutches as instructed, nonweightbearing 3. medications for pain as prescribed, no driving on narcotics 4. follow up with orthopedics for further evaluation and treatment, call for appt. 5. do not sleep in the knee immobilizer, take off at night or rest. 6. It was noted on your imaging today that you do have a fracture in the knee and it is very important that you follow-up with orthopedics for this Prescriptions: Oxycodone HCl/Acetaminophen [Percocet 5-325 mg Tablet] 1 tab PO Q4H PRN #15 tab PRN Reason: Referrals: HUNTER GARCIA DO [ACTIVE STAFF] - Follow up as needed
--- NOTE | 2019-11-20 11:58 | RADIOLOGY REPORT (SQ) ---
EXAM DESCRIPTION: KNEE RIGHT 4 VIEWS IMAGES COMPLETED DATE/TIME: 11/20/2019 11:46 am REASON FOR STUDY: fall COMPARISON: None. NUMBER OF VIEWS: Four views. TECHNIQUE: AP, lateral, and both oblique radiographic images acquired of the right knee. LIMITATIONS: None. FINDINGS: MINERALIZATION: Normal. BONES: Minimally displaced fracture at the base of the tibial spine. No worrisome bone lesions. JOINT: Joint effusion. SOFT TISSUES: No soft tissue swelling. No radio-opaque foreign body. OTHER: No other significant finding. IMPRESSION: MINIMALLY DISPLACED FRACTURE AT THE BASE OF THE TIBIAL SPINE. TECHNICAL DOCUMENTATION: JOB ID: [id number] 2010 [employer]- All Rights Reserved Reading location - IP/workstation name: [email or web address]
--- NOTE | 2019-11-20 12:07 | RADIOLOGY REPORT (SQ) ---
EXAM DESCRIPTION: CT RT LOWER EXTREMITY WITHOUT IMAGES COMPLETED DATE/TIME: 11/20/2019 11:50 am REASON FOR STUDY: knee inj, eval tibial plateau fx COMPARISON: None. TECHNIQUE: Axial imaging performed through the right knee with reformatted coronal and sagittal imag ing windowed for bone and soft tissues. Images saved to PACS. 3D IMAGING: Were 3D images as MIP, SSD, or volume rendering performed at the work station? No. All CT scanners at this facility use dose modulation, iterative reconstruction, and/or weight based d osing when appropriate to reduce radiation dose to as low as reasonably achievable (ALARA). [facility]: Dose Right [facility]: CareDose [facility]: Dose Right [facility]: Teradose 4D [facility]: CromoUp LIMITATIONS: None. RADIATION DOSE: CT Rad equipment meets quality standard of care and radiation dose reduction techniq ues were employed. CTDIvol: 4.1 mGy. DLP: 93 mGy-cm. mGy. FINDINGS: SOFT TISSUES: No obvious swelling or foreign body. BONES: Minimally displaced fracture through the base of the tibial spine. MINERALIZATION: Normal. OTHER: Joint effusion. IMPRESSION: MINIMALLY DISPLACED FRACTURE THROUGH THE BASE OF THE TIBIAL SPINE, MOST LIKELY AN AVULSI ON INJURY. TECHNICAL DOCUMENTATION: JOB ID: [id number] Quality ID # [id number]: Final reports with documentation of one or more dose reduction techniques (e.g., Au tomated exposure control, adjustment of the mA and/or kV according to patient size, use of iterative reconstruction technique) 2010 [employer] All Rights Reserved Reading location - IP/workstation name: [email or web address]
== END 2019-11-20 11:57 | disposition home or self-care (01) ==
LOC: ER 09:39
DX: S82.141A Displaced bicondylar fracture of right tibia, initial encounter for closed fracture (principal); W01.0XXA Fall on same level from slipping, tripping and stumbling without subsequent striking against object, initial encounter; Y92.009 Unspecified place in unspecified non-institutional (private) residence as the place of occurrence of the external cause; F17.200 Nicotine dependence, unspecified, uncomplicated; Z88.0 Allergy status to penicillin
CPT/HCPCS: 99284; 73564; 73700; S0119

== ENCOUNTER 2019-11-29 07:15 | Day surgery (SDC) | payer MEDICAID ==
[2019-11-29 08:00] LABS: HEMOGLOBIN 12.8 g/dL (12.0-15.5); MEAN CORPUSCULAR HEMOGLOBIN 29.1 pg (27.0-33.4); MEAN CORPUSCULAR HGB CONC 34.7 g/dL (32.0-36.0); MEAN CORPUSCULAR VOLUME 84 fl (80-97); PLATELET COUNT 482 10^3/uL (150-450); RED CELL DISTRIBUTION WIDTH 12.7 % (11.5-14.0); WHITE BLOOD COUNT 7.6 10^3/uL (4.0-10.5)
[2019-11-29] MEDS ORDERED: VANCOMYCIN HCL 1,000 MG in DEXTROSE 5%-WATER 250 ML IV PRN (08:06)
[2019-11-29] MEDS ORDERED: CEFAZOLIN 2 GM/D5W RTU 2 GM/50 ML RTUPB IV PRN (08:06)
[2019-11-29 08:16] LABS: ANION GAP 9 (5-19); BLOOD UREA NITROGEN 12 mg/dL (7-20); CALCIUM 9.5 mg/dL (8.4-10.2); CARBON DIOXIDE 23 mmol/L (22-30); CHLORIDE 108 mmol/L (98-107); GLUCOSE 95 mg/dL (75-110); POTASSIUM 4.8 mmol/L (3.6-5.0)
[2019-11-29] MEDS ORDERED: CEFAZOLIN 2 GM/D5W RTU 2 GM/50 ML RTUPB IV ONE (08:32)
[2019-11-29] MEDS ORDERED: MIDAZOLAM 2 MG/2 ML INJ ONE ×2 (09:54→11:38)
[2019-11-29] MEDS ORDERED: ONDANSETRON HCL INJ/PF 4 MG/2 ML SDV ONE ×2 (09:54→15:44)
[2019-11-29] MEDS ORDERED: PROPOFOL 1,000 MG/100 ML INFUS..BTL IV ONE (09:54)
[2019-11-29] MEDS ORDERED: FENTANYL CITRATE INJ/PF 100 MCG/2 ML AMPUL ONE (09:54)
[2019-11-29] MEDS ORDERED: EPINEPHRINE INJ/PF 1 MG/1 ML AMPULE ONE ×2 (10:07→11:46)
[2019-11-29] MEDS ORDERED: BUPIVACAINE HCL 0.25 % INJ/PF (2.5 MG/1 ML) 30 ML VIAL ONE (10:07)
[2019-11-29] MEDS ORDERED: DIPHENHYDRAMINE HCL 50 MG/ML VIAL IV PRN (12:07)
[2019-11-29] MEDS ORDERED: MEPERIDINE HCL/PF INJ 25 MG/1 ML DISP.SYRIN IV PRN (12:07)
[2019-11-29] MEDS ORDERED: MORPHINE SULFATE 10 MG/ML INJ IV PRN ×3 (12:07→12:23)
[2019-11-29] MEDS ORDERED: PROMETHAZINE HCL INJ 25 MG/1 ML VIAL IV PRN ×2 (12:07)
[2019-11-29] MEDS ORDERED: FENTANYL CITRATE INJ/PF 100 MCG/2 ML AMPUL IV PRN ×3 (12:07)
[2019-11-29] MEDS ORDERED: TRAMADOL HCL 50 MG TABLET PO PRN (12:23)
[2019-11-29] MEDS ORDERED: TRANEXAMIC ACID INJ/PF 1,000 MG/10 ML SDV IV ONE (12:23)
[2019-11-29] MEDS ORDERED: PANTOPRAZOLE SODIUM 20 MG TABLET.DR PO ONE (12:23)
[2019-11-29] MEDS ORDERED: OXYCODONE HCL IR 5 MG TABLET PO PRN ×4 (12:23)
[2019-11-29] MEDS ORDERED: ZOLPIDEM TARTRATE 5 MG TABLET PO PRN (12:23)
[2019-11-29] MEDS ORDERED: DIPHENHYDRAMINE HCL 25 MG CAPSULE PO PRN (12:23)
[2019-11-29] MEDS ORDERED: DEXAMETHASONE SOD PHOS INJ 10 MG/1 ML VIAL IV ONE (12:23)
[2019-11-29] MEDS ORDERED: NORMAL SALINE 1000 ML 1,000 ML IV PRN (12:23)
[2019-11-29] MEDS ORDERED: DOCUSATE SODIUM 100 MG CAPSULE PO PRN (12:23)
[2019-11-29] MEDS ORDERED: ONDANSETRON 4 MG TAB.RAPDIS PO PRN (12:23)
[2019-11-29] MEDS ORDERED: ROPIVACAINE HCL 0.5% INJ/PF (5 MG/1 ML) 30 ML SDV ONE (12:29)
[2019-11-29] MEDS ORDERED: ACETAMINOPHEN 325 MG TABLET PO SCH (12:45)
--- NOTE | 2019-11-29 12:45 | Operative Report ---
Operative Report DATE OF SURGERY: 11/29/19 PREOPERATIVE DIAGNOSIS: Right displaced tibial eminence fracture. POSTOPERATIVE DIAGNOSIS: Right tibial eminence fracture. OPERATION: Right tibial eminence arthroscopic reduction internal fixation. SURGEON: ANTONI CHRISTIANSON JR ANESTHESIA: Spinal COMPLICATIONS: None ESTIMATED BLOOD LOSS: 20 cc PROCEDURE: The patient is a 28-year-old female who sustained a tibial eminence fracture. I seen her in the office and initially had suggested nonoperative management, however subsequent x-rays demonstrated that the fracture was potentially unstable as there was some change with suspected malreduction from an office films. I discussed this with the patient and the potential for there to the long-term complications from an injury such as this with or without surgery but surgical fixation may lead to a more reliable outcome. After offering the patient treatment with either option the patient has elected proceed with right tibial eminence arthroscopic reduction internal fixation. Patient was brought in the operating suite where she received spinal anesthesia. She was then laid supine on the operating table in the right lower extremities prepped and draped in standard sterile fashion. She was provided with 2 g Ancef preoperatively and 1 g of vancomycin. The incision was marked and a timeout was performed followed by exsanguination with an Esmarch and inflation of the tourniquet to 300 mmHg. The lateral portal was made with an 11 blade followed by introduction of a trocar and then subsequently the introduction of a camera. A considerable amount of evacuation was required in order to visualize the joint. She had a hemarthrosis that required substantial flushing. Upon being able to visualize the joint we made a medial portal by first ensuring appropriate positioning with a spinal needle and then following that with a an 11 blade and trocar and then subsequently a probe. The medial compartment was then inspected and found to have a relatively nondisplaced fracture that was identified with a probe and images were taken. She also had a anterior radial tear of the medial meniscus. Unfortunately due to the location and morphology of the tear this was not able to be addressed surgically. The posterior aspect of the medial meniscus was intact through to the root without signs of associated injury. We then introduced the suction shaver and removed some of the bleeding fat pad to allow for better visualization of the notch. The PCL was found to be intact and appropriately tensioned while the ACL was mildly lax but appropriately intact to the fragment. We then proceeded with a diagnostic arthroscopy into the lateral compartment which found the lateral meniscus to be wholly intact without any signs of tear, the fracture did extend into the weightbearing surface of the lateral plateau as well without overt displacement. We returned to the superior compartment and then into the gutters and then returned to the tibial eminence in order to address the fracture. Appropriate reduction of the fragment was confirmed followed by placement of a ball spike just anterior to the ACL and reduction was held in place with the ball spike pusher. An ACL guide was used to pass a tunnel on both the medial and lateral aspect of the ACL footprint. Into each tunnel a [employer] suture passer was introduced. A #2 FiberWire was then passed with a 90 degree suture passer through the Qureshi suture passers and each limb was brought through the respective bone tunnel so that the FiberWire was just anterior to the ACL. This was repeated with a #5 FiberWire however this time we passed the 90 degree suture passer through the ACL at the base just above the bone. Again each limb was then brought through the bone tunnels. The ball spike pusher was then reintroduced and held to allow for compression of the fracture site while the #2 FiberWire was tightened and sutured tightly over the anterior tibial bony bridge between the 2 bone tunnels. Subsequent to this the #5 FiberWire was then tightly sutured across the anterior bony bridge of the tibia. After this we returned to the joint to inspect the reduction which was found to be excellent and tension was appropriate. The ACL was inspected again which was found to be appropriately tensioned. We then evacuated the knee of all excess fluid followed by repeat rinse and repeat inspection of the knee to ensure there is no loose fragments present. After this we injected quarter percent Marcaine. The tibial incision was closed with 2-0 Monocryl followed by elan and the portal sites were closed with elan. The patient was then transferred the PACU in stable condition.
[2019-11-29] MEDS: PROMETHAZINE HCL INJ 25 MG/1 ML VIAL ONE ×2 (12:56→13:12)
--- NOTE | 2019-11-29 13:11 | RADIOLOGY REPORT (SQ) ---
EXAM DESCRIPTION: KNEE RIGHT 4 VIEWS IMAGES COMPLETED DATE/TIME: 11/29/2019 1:01 pm REASON FOR STUDY: post op S82.111A DISP FX OF RIGHT TIBIAL SPINE, INIT FOR CLOS FX COMPARISON: None. NUMBER OF VIEWS: Four views. TECHNIQUE: AP, lateral, and both oblique radiographic images acquired of the right knee. LIMITATIONS: None. FINDINGS: MINERALIZATION: Normal. BONES: There is a fracture of the medial tibial spine. JOINT: There is a joint effusion. SOFT TISSUES: Skin elan are present. OTHER: No other significant finding. IMPRESSION: Medial tibial spine fracture. Surgical changes. TECHNICAL DOCUMENTATION: JOB ID: [id number] 2010 [employer]- All Rights Reserved Reading location - IP/workstation name: [email or web address]
[2019-11-29] MEDS ORDERED: KETOROLAC TROMETHAMINE INJ/PF 30 MG/1 ML SDV IV SCH (14:00)
[2019-11-29] MEDS ORDERED: PHENYLEPHRINE HCL INJ/PF 10 MG/1 ML SDV ONE (15:44)
[2019-11-29 15:46] VITALS: BP 137/61
[2019-11-29] MEDS ORDERED: CEFAZOLIN 2 GM/D5W RTU 2 GM/50 ML RTUPB IV SCH (18:00)
[2019-11-29] MEDS ORDERED: CEFAZOLIN SODIUM 2 GM in DEXTROSE 5%-WATER 100 ML IV SCH (18:00)
[2019-11-29] MEDS ORDERED: GABAPENTIN 100 MG CAPSULE PO SCH (22:00)
[2019-11-30] MEDS ORDERED: POLYETHYLENE GLYCOL 3350 POWDER 17 GM/1 PACKET PO SCH (10:00)
[2019-11-30] MEDS ORDERED: ASPIRIN 325 MG TABLET PO SCH (10:00)
== END 2019-11-29 15:10 | disposition home or self-care (01) ==
LOC: UNDOADMIN 07:15 → INOR 07:15 → OROUT 07:15 → EDSTATUS 10:00 → OROUT 15:10 → UNDODISIN 15:10
PROVIDERS: ATTEND Orthopaedic Surgery
DX: S82.111A Displaced fracture of right tibial spine, initial encounter for closed fracture (principal); W19.XXXA Unspecified fall, initial encounter; Y92.009 Unspecified place in unspecified non-institutional (private) residence as the place of occurrence of the external cause; M25.561 Pain in right knee; Z88.0 Allergy status to penicillin; F17.210 Nicotine dependence, cigarettes, uncomplicated; Z03.818 Encounter for observation for suspected exposure to other biological agents ruled out
CPT/HCPCS: 01392; 36415; 80048; 84703; 85027; J0171; J0690; J2250; J2370; J2405; J2550; J2704; J2795; J3010; J3370; J7060